=== PATIENT | female | born 1950 | race Caucasian/White ===

== ENCOUNTER 2021-10-06 17:00 | Emergency (ER) | payer MEDICARE ==
[2021-10-06] MEDS ORDERED: Lidocaine Viscous Sol 2% 15 ml UD Cup ONE (18:09)
[2021-10-06] MEDS ORDERED: Sucralfate 1 GM/10 ML UDCUP ONE (18:09)
[2021-10-06] MEDS ORDERED: Pantoprazole 40 MG VIAL ONE (18:09)
[2021-10-06] MEDS ORDERED: Mag-Al Plus 1200 MG/1200 MG/120 MG/30 ML UDCUP ONE (18:09)
[2021-10-06] MEDS ORDERED: Ondansetron PF 4 MG/2 ML Vial ONE (18:09)
[2021-10-06 18:33] LABS: #Basophils 0.1 10x3/uL (0.0-0.2); #Eosinphils 0.6 10x3/uL (0.0-0.5); #Monocytes 0.7 10x3/uL (0.0-1.1); #Neutrophils 4.4 10x3/uL (1.5-8.4); %Basophils 0.8 % (0.0-2.0); %Eosinophils 8.5 % (0.0-6.0); %Lymphocytes 18.9 % (18.0-47.0); %Monocytes 10.4 % (0.0-10.0); %Neutrophils 61.1 % (40.0-75.0); Hemoglobin 14.2 g/dL (12.0-15.5); Mean Corpuscular HGB CONC 34.1 g/dL (32.0-36.0); Mean Corpuscular Hemoglobin 30.1 pg (27.0-33.0); Mean Corpuscular Volume 88.5 fl (81.6-98.3); Mean Platelet Volume 10.5 fl (7.4-10.4); Platelet Count 254 10x3/uL (150-450); RBC Distribution Width 12.5 % (11.5-14.5); Red Blood Cell (RBC) Count 4.71 10x6/uL (3.90-5.03); White Blood Cell (WBC) Count 7.1 10x3/uL (3.5-10.5)
[2021-10-06 18:48] LABS: ALT (SGPT) 20 U/L (8-55); AST (SGOT) 17 U/L (5-34); Albumin 4.2 g/dL (3.4-4.8); Alkaline Phosphatase 136 U/L (40-110); Anion Gap 17 mmol/L (10-20); BUN (Urea Nitrogen) 24 mg/dL (9.8-20.1); Bilirubin, Total 0.9 mg/dL (0.2-1.2); Calc. Creatinine Clearance 0 mL/min (70-130); Calcium 9.7 mg/dL (7.8-10.44); Carbon Dioxide 18 mmol/L (23-31); Chloride 106 mmol/L (98-107); Globulin 2.9 g/dL (2.4-3.5); Glucose 132 mg/dL (83-110); Lipase 26 U/L (8-78); Potassium 3.9 mmol/L (3.5-5.1); Protein, Total 7.1 g/dL (5.8-8.1); Sodium 137 mmol/L (136-145)
[2021-10-06] MEDS ORDERED: Acetaminophen 500 MG TAB ONE (18:51)
[2021-10-06] MEDS ORDERED: Promethazine HCl 25 MG/ML VIAL ONE (19:58)
== END 2021-10-06 19:35 | disposition home or self-care (01) ==
LOC: CSHERS 17:00
DX: K21.9 Gastro-esophageal reflux disease without esophagitis (principal); J32.9 Chronic sinusitis, unspecified; Z79.899 Other long term (current) drug therapy; Z79.82 Long term (current) use of aspirin
CPT/HCPCS: 71045; 80053; 83690; 84484; 85025; 93005; 96372; 96374; 96375; C9113; J2405; J2550

== ENCOUNTER 2024-02-12 08:40 | Outpatient (CLI) | payer MEDICARE | END 2024-02-12 08:41 | disposition home or self-care (01) | LOC: CSHMAMMO 08:40 | PROVIDERS: ATTEND Nurse Practitioner Family | DX: Z78.0 Asymptomatic menopausal state (principal); M85.89 Other specified disorders of bone density and structure, multiple sites | CPT/HCPCS: 77080 ==